=== PATIENT | female | born 1950 | race Caucasian/White ===

== ENCOUNTER 2019-03-24 11:12 | Emergency (ER) | payer MEDICARE ==
[~2019-03-24] VITALS: Ht 157.5 cm; Wt 74.8 kg
[~2019-03-24 11:12] MED LIST: CRUTCH2 USE; OXYACE5T PO
[2019-03-24 11:48] LABS: Source, Urine Clean Catch
[2019-03-24 12:00] LABS: Bilirubin, Urine Neg (Neg); Blood, Urine Neg (Neg); Glucose Qualitative, Urine Neg (Neg); Ketones, Urine Neg (Neg); Leukocyte Esterase, Urine 3+ (Neg); Nitrite, Urine Neg (Neg); Protein, Urine Neg (Neg); Specific Gravity, Urine 1.015 (1.003-1.022); Urobilinogen, Urine NORM (Normal)
[2019-03-24 12:13] LABS: Appearance, Urine Clear (Clear); Color, Urine Yellow (P-Yellow)
[2019-03-24 12:16] LABS: Bacteria Few /hpf; Red Blood Cells, Urine 0-2 /hpf (0-2); Squamous Epithelial Cells Few /hpf (Few)
[2019-03-24] MEDS ORDERED: Robaxin-750750 MG PO (12:42)
[2019-03-24] MEDS ORDERED: CEPH500 PO (12:42)
[2019-03-24] MEDS ORDERED: LIDO700A20 TOP (12:42)
[2019-03-24] MEDS ORDERED: IBUP600 PO (12:42)
== END 2019-03-24 12:52 | disposition home or self-care (01) ==
LOC: ER 11:12
PROVIDERS: Physician Assistant
DX: N39.0 Urinary tract infection, site not specified (principal); M54.5 Low back pain
CPT/HCPCS: 81001; 87086; 99283

== ENCOUNTER 2020-07-18 10:32 | Emergency (ER) | payer MEDICARE ==
[~2020-07-18] VITALS: Ht 157.5 cm; Wt 74.8 kg
[~2020-07-18 10:32] MED LIST changes: +CEPH500 PO; +IBUP600 PO; +LIDO700A20 TOP; +Robaxin-750750 MG PO
[2020-07-18] MEDS ORDERED: PENVK500 PO (10:57)
[2020-07-18] MEDS ORDERED: TRAM50 PO (10:57)
[2020-07-18] MEDS ORDERED: IBUP800 PO (10:57)
== END 2020-07-18 11:21 | disposition home or self-care (01) ==
LOC: ER 10:32
DX: K04.7 Periapical abscess without sinus (principal); K12.2 Cellulitis and abscess of mouth
CPT/HCPCS: 99282

== ENCOUNTER 2024-04-09 11:30 | Day surgery (SDC) | payer MEDICARE ==
[~2024-04-09] VITALS: Ht 157.5 cm; Wt 73.9 kg
[2024-04-09] VITALS (7 sets, daily range): BP systolic 141–167; BP diastolic 75–82
[~2024-04-09 11:30] MED LIST changes: +CeFAZolin Sodium 2,000 MG in NS 100 ML IV SCH; +IBUP800 PO; +Indocyanine Green 25 MG Vial IV ONE; +LISI20 PO; +Lactated Ringer's 1,000 ML IV SCH; +OMEPRAZOLE MAGN20 MG PO; +ONDA4 PO; +PENVK500 PO; +TRAM50 PO
[2024-04-09] MEDS ORDERED: Bupivacaine 0.5% HCl 5 MG/ML 30MLVIAL ONE (12:03)
[2024-04-09] MEDS ORDERED: CefOXitin Sodium 2,000 MG in NS 50 ML IV SCH (12:10)
--- NOTE | 2024-04-09 12:23 | NUR ---
Ambulatory in Day SurgeryPre-Op teaching done. Pt verbalizes understanding. History, Chart, Medications and Allergies reviewed before start of procedure.Patient confirms NPO status and agrees with scheduled surgery. Patient States Post-Procedure ride home has been arranged.
[2024-04-09] MEDS ORDERED: propofoL 20 ML IV ONE (12:26)
[2024-04-09] MEDS ORDERED: FentaNYL Citrate 50 MCG/ML 2 ML Injection ONE ×2 (12:26→14:21)
[2024-04-09] MEDS ORDERED: Rocuronium Bromide 10 MG/ML 5ML Injection IV ONE (12:31)
[2024-04-09] MEDS ORDERED: SuccINYLCHOLINE Chloride 100 MG/5 ML 5MLSYR ONE (12:31)
[2024-04-09] MEDS ORDERED: Phenylephrine HCl 100 MCG/ML-NS 10MLSYR (1MG/10ML) ONE (12:50)
[2024-04-09] MEDS ORDERED: Dexamethasone Sod Phos 10 MG/ML 1ML VIAL ONE (12:50)
[2024-04-09] MEDS ORDERED: Ondansetron HCl 2 MG / ML 2ML Vial ONE (12:50)
--- NOTE | 2024-04-09 12:59 | NUR ---
04/09/24 1259 Va,Whitney BRUISE NOTED ON PATIENT'S LOWER LIP PRIOR TO ENTRY TO OR.
[2024-04-09] MEDS ORDERED: Sugammadex Sodium 200 MG/2ML SDV (100 MG/ML) ONE (13:08)
[2024-04-09] MEDS ORDERED: Ketorolac Tromethamine 30mg Vial ONE (13:08)
[2024-04-09] MEDS ORDERED: OxyCODONE 5 mg/Acetamin 325 mg TABLET PO PRN (13:35)
--- NOTE | 2024-04-09 13:59 | NUR ---
PT AXOX4, IS ABLE TO REPOSITION SELF IN BED, DENIES NAUSEA, REPORTS SHARP AND BURNING PAIN IN ABD. PT REQUESTING PO PAIN MEDS. PT HAS FOUR INCISION SITES ON ABD THAT ARE COVERED WITH DERMABOND AND ARE CDI.
--- NOTE | 2024-04-09 14:40 | NUR ---
ASSUMED CARE. BEDSIDE REPORT RECEIVED. PT IN BED RESTING, 4 ABD INCISIONS ARE C/D/I. PT DRINKING JUICE.
--- NOTE | 2024-04-09 15:15 | NUR ---
Patient up to Ambulate independently. Gait steady. Discharged via wheelchair to private car for ride home.
[2024-04-10] MEDS ORDERED: FentaNYL Citrate 50 MCG/ML 2 ML Injection IV PRN (12:25)
== END 2024-04-09 15:19 | disposition home or self-care (01) ==
LOC: ORSCMMR 11:30 → ORD 13:15 → ORSCMMR 15:19
PROVIDERS: Surgery
PROC: BF031ZZ Plain Radiography of Gallbladder and Bile Ducts using Low Osmolar Contrast (ICD-10-PCS; principal; 2024-04-09 13:15)
PROC: 3E0T3BZ Introduction of Anesthetic Agent into Peripheral Nerves and Plexi, Percutaneous Approach (ICD-10-PCS; principal; 2024-04-09 13:15)
PROC: 0FT44ZZ Resection of Gallbladder, Percutaneous Endoscopic Approach (ICD-10-PCS; principal; 2024-04-09 13:15)
DX: K80.20 Calculus of gallbladder without cholecystitis without obstruction (principal); K74.60 Unspecified cirrhosis of liver; I10 Essential (primary) hypertension; F17.210 Nicotine dependence, cigarettes, uncomplicated; Z79.899 Other long term (current) drug therapy
CPT/HCPCS: 88304; A9270; J0330; J0690; J0694; J1100; J1885; J2371; J2405; J2704; J3010; J7120

== ENCOUNTER 2025-01-07 07:34 | Day surgery (SDC) | payer MEDICARE ==
[~2025-01-07] VITALS: Ht 157.5 cm; Wt 62.8 kg
[~2025-01-07 07:34] MED LIST changes: -CeFAZolin Sodium 2,000 MG in NS 100 ML IV SCH; -Indocyanine Green 25 MG Vial IV ONE; +LEVOTHYROXINE25 MC9 PO; -Lactated Ringer's 1,000 ML IV SCH; +MICROZIDE12.5 M2 PO
[2025-01-07 08:15] VITALS: BP 152/89
--- NOTE | 2025-01-07 08:15 | NUR ---
AMBULATORY INTO SDS. PT DENIES PAIN OR SOB. HISTORY AND ALLERGIES REVIEWED. LUNGS CLEAR-SATS 100% ON RA.NPO STATUS CONFIRMED.PREP RESULTS CONFIRMED. PT DAUGHTER JULIAN IS HER RIDE HOME TODAY.
--- NOTE | 2025-01-07 09:26 | NUR ---
01/07/[address] SEE ANESTHESIA RECORDS.
[2025-01-07 09:57] VITALS: BP 133/85
--- NOTE | 2025-01-07 10:05 | NUR ---
REPORT RECEIVED FROM DANIEL BOLANOS. VSS. PT ON RA. PT A&OX4. PT ABLE TO REPOSITION SELF IN BED. PT REQUESTING PO FLUIDS AND TOLERATING THEM WELL. PT DENIES PAIN, NAUSEA OR OTHER DISCOMFORTS.
[2025-01-07 10:12] VITALS: BP 125/79
== END 2025-01-07 10:20 | disposition home or self-care (01) ==
LOC: ORSCMMR 07:34 → ORD 09:00 → ORSCMMR 10:20
PROVIDERS: Internal Medicine Gastroenterology
PROC: 0DB78ZX Excision of Stomach, Pylorus, Via Natural or Artificial Opening Endoscopic, Diagnostic (ICD-10-PCS; principal; 2025-01-07 09:00)
PROC: 0DBN8ZX Excision of Sigmoid Colon, Via Natural or Artificial Opening Endoscopic, Diagnostic (ICD-10-PCS; principal; 2025-01-07 09:00)
PROC: 0DBM8ZX Excision of Descending Colon, Via Natural or Artificial Opening Endoscopic, Diagnostic (ICD-10-PCS; principal; 2025-01-07 09:00)
DX: K74.60 Unspecified cirrhosis of liver (principal); R94.5 Abnormal results of liver function studies; K62.5 Hemorrhage of anus and rectum; R19.5 Other fecal abnormalities; K29.70 Gastritis, unspecified, without bleeding; D12.5 Benign neoplasm of sigmoid colon; K63.5 Polyp of colon; D12.4 Benign neoplasm of descending colon; I10 Essential (primary) hypertension; K21.9 Gastro-esophageal reflux disease without esophagitis; E03.9 Hypothyroidism, unspecified; Z79.899 Other long term (current) drug therapy
CPT/HCPCS: 88305; 88342; J2704; J7120